=== PATIENT | male | born 1995 | race Caucasian/White ===

== ENCOUNTER 2021-02-07 07:59 | Emergency (ER) | payer MEDICAID ==
[~2021-02-07] VITALS: Ht 170.2 cm; Wt 52.2 kg
[2021-02-07 08:00] VITALS: BP_SYST 133
[2021-02-07] MEDS: IBUPROFEN 600 MG TABLET PO ONE (08:21)
[2021-02-07] MEDS ORDERED: IBUP-1969 PO (08:45)
[2021-02-07 08:50] VITALS: BP_SYST 119
== END 2021-02-07 08:50 | disposition home or self-care (01) ==
LOC: SED 07:59
DX: M94.0 Chondrocostal junction syndrome [Tietze] (principal)
CPT/HCPCS: 71045; 99283